=== PATIENT | female | born 1975 | race Hispanic/Latino ===

== ENCOUNTER 2022-04-24 08:37 | Day surgery (SDC) | payer OTHER ==
[2022-04-22 13:24] VITALS: BMI 37.8
[2022-04-24] MEDS ORDERED: PROPOFOL 40 ML ONE (10:06)
[2022-04-24] MEDS ORDERED: Lidocaine 1% PF 5 ML VIAL ONE (10:10)
== END 2022-04-24 11:45 | disposition home or self-care (01) ==
LOC: CSHSDC 08:37
PROVIDERS: ATTEND Internal Medicine Gastroenterology
PROC: 0DJD8ZZ Inspection of Lower Intestinal Tract, Via Natural or Artificial Opening Endoscopic (ICD-10-PCS; principal; 2022-04-24)
DX: Z12.11 Encounter for screening for malignant neoplasm of colon (principal); K64.8 Other hemorrhoids; Z79.899 Other long term (current) drug therapy; Z88.8 Allergy status to other drugs, medicaments and biological substances
CPT/HCPCS: J2704